=== PATIENT | female | born 1955 | race Caucasian/White ===

== ENCOUNTER 2019-02-12 19:34 | Outpatient (CLI) | payer SELFPAY ==
[~2019-02-12] VITALS: Ht 160 cm; Wt 62.6 kg
[2019-02-12 19:28] VITALS: BP 149/86
[~2019-02-12 19:34] MED LIST: CT SWABBABLE VALVE TRANS SET 1 EA INFUS.SET MC ONE; IOHEXOL-350 100 ML VIAL IV ONE; IV NS 0.9% 250 ML IV ONE; IV NS 0.9% 500 ML IV PRN; METOPROLOL TARTRATE INJ 5 MG/5 ML AMPUL IVP ONE; METOPROLOL TARTRATE INJ 5 MG/5 ML AMPUL ONE; NITROGLYCERIN 0.4 MG/TAB BOTTLE SL ONE
== END 2019-02-12 23:59 | disposition home or self-care (01) ==
LOC: CT 19:34
PROVIDERS: ATTEND Internal Medicine Cardiovascular Disease
DX: I70.0 Atherosclerosis of aorta (principal); M47.814 Spondylosis without myelopathy or radiculopathy, thoracic region
CPT/HCPCS: 75574; J3490 ×3; J7050; Q9967